=== PATIENT | male | born 1985 | race Caucasian/White ===

== ENCOUNTER 2017-02-15 20:56 | Emergency (ER) | payer OTHER ==
[~2017-02-15] VITALS: Ht 177.8 cm; Wt 65.8 kg
[2017-02-15 21:12] VITALS: BP 165/90
--- NOTE | 2017-02-15 21:34 | ED THROAT/DENTAL COMPLAINT ---
History of Present Illness General Chief Complaint: Sore Throat, Dental Pain Stated Complaint: DENTAL PAIN Source: patient, old records Exam Limitations: no limitations Vital Signs & Intake/Output Vital Signs & Intake/Output Vital Signs Date Time Temp Pulse Resp B/P Pulse O2 O2 Flow FiO2 Ox Delivery Rate 02/16 2112 98.4 81 18 165/90 97 Room Air ED Intake and Output 02/16 0000 02/15 1200 Intake Total 0 Output Total Balance 0 Intake, Oral 0 Patient 145 lb Weight Allergies Coded Allergies: NO KNOWN ALLERGIES (NKA) (02/22/11) Reconcile Medications Amoxicillin/Potassium Clav (Augmentin 875-125 Tablet) 875 MG-125 MG TABLET 1 TAB PO BID toothache Oxycodone HCl/Acetaminophen (Percocet 5-325 MG Tablet) 5 MG-325 MG TABLET 1 TAB PO BID pain Triage Note: PT TO TRIAGE WITH REQUEST OF PAIN MEDS FOR DENTAL PAIN 08/11 xF DAYS. NO OTHER COMPLAINTS. VSS. Triage Nurses Notes Reviewed? yes Onset: Abrupt Duration: day(s): (2), constant Timing: recent history Injury Environment: home Severity: moderate, severe Severity Numbers: 10 Modifying Factors: Worsens With: eating. Associated Symptoms: denies HPI: 31-year-old male presents emergency room for evaluation complaining of right lower dental pain as rating up into his cheek for the past several days however worse over the past 2 days 10 out of 10 severe aching worse with eating and cold palpation. He denies any recent injury or trauma. He has not taken anything for symptoms and is scheduled to see a dentist tomorrow. He is requesting something for pain for this evening. He denies any facial swelling fever or chills. No nausea no vomiting (BRADEN DRUMMOND) Past History Travel History Traveled to [place] past 21 day No Medical History Any Pertinent Medical History? none Tetanus Vaccine: Surgical History Surgical History: none Psychosocial History What is your primary language German Tobacco Use: Current Daily Use Daily Tobacco Use Amount/Type: => 5 Cigarettes daily Family History Hx Contributory? No (BRADEN DRUMMOND) Review of Systems Review of Systems Constitutional: Reports: see HPI. All Other Systems: Reviewed and Negative Comments Review of systems: See HPI, All other systems negative. Constitutional, no chills no fever, no malaise HEENT: no sore throat no congestion, no ear pain Cardiovascular: No chest pain , no palpitation Skin, no rashes, no change in skin Respiratory: No dyspnea no cough GI: No nausea no vomiting, no diarrhea, : No dysuria No hematuria, Muscle skeletal: No joint pain, no joint swelling, no back pain, no neck pain, Neurologic: no headache Psych: No stress Heme/endocrine: No bruising no bleeding Immunology: No lymphadenopathy, (BRADEN DRUMMOND) Physical Exam Physical Exam General Appearance: well developed/nourished, no apparent distress, alert, awake Mouth/Throat: normal mouth inspection, dental tenderness Comments: Well-developed well-nourished patient in no apparent distress. Head/Face: Atraumatic, no maxillary/frontal sinus tenderness, no facial swelling Eyes: PERRL, EOMI, no conjunctival injection Ear:External auditory canals clear, no erythema, no FB. Nose: atraumatic.Normal inspection Throat: Moist mucous membranes.Pharynx normal. No pharyngeal erythema/exudate seen. No stridor/drooling or assymetry. No swelling or edema. Right lower Dental tenderness no abscess Neck: Supple, no lymphadenopathy, FROM Back: FROM, Nontender Cardiovascular: Regular rate and rhythms no murmurs rubs or gallops, Respiratory: Chest nontender.There were no bony deformities, no asymmetry. No respiratory distress. Patient speaking in full complete sentences. Breath sounds clear to auscultation bilaterally: NO W/R/R Extremities: full range of motion Neuro: Alert and oriented x3 Skin: Warm & dry;No appreciable rash on exposed skin Psych: Mood affect normal, normal memory normal judgment. Core Measures ACS in differential dx? No Severe Sepsis Present: No Septic Shock Present: No (BRADEN DRUMMOND) Progress Differential Diagnosis: carious tooth, epiglottitis, Ludwigs angina, titus- tonsillar abscess, tooth fracture Plan of Care: I had an extensive conversation regarding need for close follow up with their primary care physician this week as well as return precautions. I answered all of their questions, they feel comfortable with the plan and follow-up care. I discussed the medications that they will receive with the patient. I gave them signs and symptoms that could indicate an adverse reaction. I have advised them to limit their activities until they can see how they respond to the medication. (BRADEN DRUMMOND) Departure Departure Time of Disposition: 2135 Disposition: HOME OR SELF CARE Condition: Stable Clinical Impression Primary Impression: Chronic dental pain Referrals: GILDARDO LYON,MIGUEL ÁNGEL Cortez (PCP/Family) Additional Instructions: Follow-up with your dentist tomorrow as scheduled. Percocet for breakthrough pain. Use caution as this is narcotic highly addictive no driving or drinking alcohol while taking. Augmentin as discussed this prescriptions were sent to [facility]. Ibuprofen 600 mg every 8 hours as needed during the day Departure Forms: Customer Survey General Discharge Information Prescriptions: Current Visit Scripts Amoxicillin/Potassium Clav (Augmentin 875-125 Tablet) 1 TAB PO BID #14 TAB Oxycodone HCl/Acetaminophen (Percocet 5-325 MG Tablet) 1 TAB PO BID #10 TAB (BRADEN DRUMMOND) PA/[employer]ES[employer]ER Co-Sign Statement Statement: ED Attending supervision documentation- [] I saw and evaluated the patient. I have also reviewed all the pertinent lab results and diagnostic results. I agree with the findings and the plan of care as documented in the PA's/WHOLESALE BU[employer]ER's documentation. [x] I have reviewed the ED Record and agree with the PA's/WHOLESALE BU[employer]ER's documentation. [] Additions or exceptions (if any) to the PAs/WHOLESALE BUYER's note and plan are summarized below: [] (NICKY LYON,MUSTAPHA Krishnamurthy)
[2017-02-15] MEDS ORDERED: AUGMENTIN 875-1 EACH PO (21:38)
[2017-02-15] MEDS ORDERED: PERCOCET 5-3251 EACH PO (21:38)
== END 2017-02-15 21:48 ==
LOC: ERH 20:56
DX: K08.89 Other specified disorders of teeth and supporting structures (principal)